=== PATIENT | female | born 1955 | race Caucasian/White ===

== ENCOUNTER 2016-07-20 08:30 | Emergency (ER) | payer BC, OTHER ==
[2016-07-20 08:52] VITALS: BP 175/86
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
== END 2016-07-20 09:10 | disposition home or self-care (01) ==
LOC: UCEAST 08:30
DX: S43.402A Unspecified sprain of left shoulder joint, initial encounter (principal); W22.09XA Striking against other stationary object, initial encounter; Y93.89 Activity, other specified; Y92.481 Parking lot as the place of occurrence of the external cause; Z88.0 Allergy status to penicillin; Z87.891 Personal history of nicotine dependence
CPT/HCPCS: 99212; G0463